=== PATIENT | female | born 1965 | race Caucasian/White ===

== ENCOUNTER 2016-09-25 05:27 | Day surgery (SDC) | payer BC ==
[2016-09-22 08:15] LABS: BASOPHILS 0.3 %; BASOPHILS ABSOLUTE 0.02 10/3/uL (0.0-0.16); EOSINOPHILS 1.3 %; EOSINOPHILS ABSOLUTE 0.09 10/3/uL (0.0-0.53); HEMATOCRIT 39.8 % (36.0-48.0); HEMOGLOBIN 13.5 g/dL (12.0-16.0); IMMATURE GRANULOCYTES 0.1 %; IMMATURE GRANULOCYTES ABSOLUTE 0.01 10/3/uL (0.0-0.11); LYMPHOCYTES 45.3 %; LYMPHOCYTES ABSOLUTE 3.26 10/3/uL (0.67-4.30); MEAN CORPUS HGB CONC 33.9 g/dL (32.0-36.0); MEAN CORPUSCULAR HEMOGLOB 31.1 pg (26.0-34.0); MEAN CORPUSCULAR VOLUME 91.7 fL (80-100); MEAN PLATELET VOLUME 9.4 fL (9.2-13.0); MONOCYTES 4.9 %; MONOCYTES ABSOLUTE 0.35 10/3/uL (0.21-1.20); NEUTROPHILS 48.1 %; NEUTROPHILS ABSOLUTE 3.47 10/3/uL (2.02-8.40); PLATELET COUNT 344 10/3/uL (150-400); RED CELL COUNT 4.34 10/6/uL (4.0-5.6); WHITE BLOOD CELLS 7.2 10/3/uL (4.5-10.5)
[2016-09-22 08:16] LABS: MANUAL DIFF NO %
[2016-09-22 08:20] LABS: PARTIAL THROMBO TIME 25.7 SEC (22.5-37.2); PROTIME (NOT ORD) 13.3 SEC (12.0-14.5)
--- NOTE | ~2016-09-25 | OP ---
Record Of Operation [facility] [address] [place]. [address] NAME: DERECK MOSQUERA : 67 STATUS : [facility]#: [id number] AGE: 51 ADM/REG DATE : 09/25/16 MR#: [id number] REPORT SERV DATE: 09/26/16 DICTATED BY: OLIVIA AGUILERA DATE: 09/26/16 REPORT STATUS : Draft TRANSCRIBED BY: DAMIÁN DATE: 09/26/16 DATE OF PROCEDURE: 09/25/2016 PREOPERATIVE DIAGNOSIS: Chronic rhinosinusitis, left ethmoid, maxillary, and frontal sinuses. POSTOPERATIVE DIAGNOSIS: Chronic rhinosinusitis, left ethmoid, maxillary, and frontal sinuses. OPERATIVE PROCEDURE PERFORMED: 1. Left endoscopic frontal sinusotomy. 2. Left endoscopic ethmoidectomy. 3. Left maxillary antrostomy with tissue removal. 4. Left endoscopic sphenoidotomy. 5. Bilateral inferior turbinoplasty. 6. Stereotactic surgical navigation. INDICATIONS AND SIGNIFICANT HISTORY: The patient is a 51-year-old female, with significant history of chronic rhinosinusitis. She has previously undergone endoscopic sinus surgery and has done well on the right side. However, has continued to have problems on her left side. In the office, she was found to have a build up of copious amounts of debris in the left ethmoid bed and absent left maxillary antrum antrostomy site. Imaging revealed debris and polyposis in the left ethmoid bed, left frontal recess, as well as into the soft tissue polypoid change in the floor of the left maxilla. The patient was felt to benefit from surgical therapy and given her prior surgical therapy, stereotactic surgical navigation was employed. OPERATIVE PROCEDURE AND FINDINGS: After informed consent was obtained, the patient was brought to the operating room, and placed on table supine position. At which point, general endotracheal anesthesia was induced by the Anesthesia Service and the surgical navigation equipment was set up to monitor extent of dissection and identification of landmarks, such as skull base. The patient's nares were decongested with topical Afrin-soaked pledgets and approximately 2 to 3 mL of 2% lidocaine with 1:100,000 epinephrine was injected into the axilla of the middle turbinate in the left naris. Next, using a [place] elevator, the left middle turbinate was medialized and suction was used to remove copious amounts of thick debris from the left ethmoid bed. There were noted to be large septations present along the ethmoid bed still as well as an intact agger nasi cell anteriorly. These were all taken down with the help of a 45-degree Chris-Cut forceps, as well as a Giraffe forceps, and suction shaver. The skull base in the sphenoid ethmoid recess was identified. The left sphenoid sinus was entered in the inferior medial portion of Philip's box. The sphenoidotomy was then enlarged with a 45-degree Chris-Cut forceps as well as a suction shaver. Attention was then turned toward the left maxillary sinus where residual uncinate process was identified. The vertical portion was incised with a sickle knife. Horizontal portion avulsed with a straight grasping forceps. A large maxillary antrostomy was created in the left maxillary sinus and using a Giraffe forceps soft tissue was removed from the floor of the left maxillary sinus, and appeared to be not a mucous retention cyst as previously thought, but Record Of Operation [address] [place]. [address] NAME: DERECK MOSQUERA : 67 STATUS : [facility] PAT#: [id number] AGE: 51 ADM/REG DATE : 09/25/16 MR#: [id number] REPORT SERV DATE: 09/26/16 DICTATED BY: OLIVIA AGUILERA DATE: 09/26/16 REPORT STATUS : Draft TRANSCRIBED BY: DAMIÁN DATE: 09/26/16 more of a mucosal polyp. Next, attention was turned toward the frontal recess were small amount of purulence was noted emanating from the frontal recess. A lighted guidewire was placed into the frontal sinus recess, advanced into the frontal sinus, and then by Seldinger technique, a frontal sinus balloon catheter was advanced over the wire into the frontal sinus. It was serially inflated to 12 to 14 cm of water. At this point, hemostasis was achieved throughout using a suction Bovie cautery. A regular size propel sinus stent was placed into the middle meatus along the left side and inferior turbinoplasty was performed. Submucous resection was performed using a suction turbinate blade from anteriorly-to- posteriorly, and then turbinates were medialized and lateralized using a Ray septal displacer. The patient tolerated this well. She was then turned back toward Anesthesia, aroused from anesthesia, and taken to the post anesthesia care unit in satisfactory condition. COMPLICATIONS: None. ESTIMATED BLOOD LOSS: Less than 20 mL. IV FLUIDS: Per Anesthesia. DLA/MODL Olivia Aguilera M.D. / [id number] CC: Milagro Roach DANIELLE
[~2016-09-25 05:27] MED LIST: ESTRACE0.5 MG PO; ESTRACE1 MG PO; IMITREX50 PO; NEUR300 PO; TOPAMAX25 PO; [UNRECOGNIZED DRUG - CODE] PO
[2016-09-25 06:56] LABS: CHLORIDE, SERUM 108 MMOL/L (96-112); CO2 (CARBON DIOXIDE) 29 MMOL/L (24-34); CREATININE 0.85 MG/DL (0.55-1.02); GFR AFRICAN AMERICAN 93 ML/MIN (>=60); GFR NON AFRICAN AMERICAN 80 ML/MIN (>=60); GLUCOSE, SERUM 95 MG/DL (60-99); SODIUM, SERUM 143 MMOL/L (135-148)
[2016-09-25 06:59] LABS: BUN (BLOOD UREA NITROGEN) 15 MG/DL (6-23); POTASSIUM, SERUM 3.8 MMOL/L (3.5-5.3)
== END 2016-09-25 13:30 | disposition home or self-care (01) ==
LOC: SDC 05:27
PROVIDERS: Otolaryngology
PROC: 09BT4ZZ Excision of Left Frontal Sinus, Percutaneous Endoscopic Approach (ICD-10-PCS; 2016-09-25)
PROC: 09BL8ZZ Excision of Nasal Turbinate, Via Natural or Artificial Opening Endoscopic (ICD-10-PCS; 2016-09-25)
PROC: 099R4ZZ Drainage of Left Maxillary Sinus, Percutaneous Endoscopic Approach (ICD-10-PCS; principal; 2016-09-25 06:45)
PROC: 09BV4ZZ Excision of Left Ethmoid Sinus, Percutaneous Endoscopic Approach (ICD-10-PCS; 2016-09-25 06:45)
PROC: 09BX4ZZ Excision of Left Sphenoid Sinus, Percutaneous Endoscopic Approach (ICD-10-PCS; 2016-09-25 06:45)
DX: J33.8 Other polyp of sinus (principal); J32.4 Chronic pansinusitis; L40.50 Arthropathic psoriasis, unspecified; Z90.710 Acquired absence of both cervix and uterus; Z98.890 Other specified postprocedural states; Z79.899 Other long term (current) drug therapy; Z87.891 Personal history of nicotine dependence
CPT/HCPCS: 80048; 82962; 85025; 85610; 85730; 88304; 88305; 93005; A9270-GY; C1726; C2625; J0690; J2250; J2270; J2405; J2550; J2710; J3010